=== PATIENT | male | born 1985 | race Caucasian/White ===

== ENCOUNTER 2016-09-17 15:24 | Emergency (ER) | payer OTHER ==
[~2016-09-17 15:24] MED LIST: ACETAMINOPHEN325 MG PO; ALDACTONE25 MG PO; ASPIRIN EC81 MG PO; COREG25 MG PO; JANUVIA100 MG PO; LASIX20 MG PO; LEVEMIR100 UNIT/1 SQ; LIPITOR20 MG PO; LISINOPRIL40 MG PO; NICOTINE TRANSD21 MG TOP; PROZAC20 MG PO
== END 2016-09-17 16:25 | disposition home or self-care (01) ==
LOC: ER 15:24
DX: S83.401A Sprain of unspecified collateral ligament of right knee, initial encounter (principal); E10.9 Type 1 diabetes mellitus without complications; I48.91 Unspecified atrial fibrillation; G43.909 Migraine, unspecified, not intractable, without status migrainosus; Z87.891 Personal history of nicotine dependence; Z79.899 Other long term (current) drug therapy; Z79.4 Long term (current) use of insulin; Z88.8 Allergy status to other drugs, medicaments and biological substances; X50.1XXA Overexertion from prolonged static or awkward postures, initial encounter

== ENCOUNTER 2017-04-06 00:29 | Emergency (ER) | payer OTHER | END 2017-04-06 03:13 | disposition home or self-care (01) | LOC: ER 00:29 | DX: G43.909 Migraine, unspecified, not intractable, without status migrainosus (principal); E11.9 Type 2 diabetes mellitus without complications; I48.91 Unspecified atrial fibrillation; Z87.891 Personal history of nicotine dependence; Z79.01 Long term (current) use of anticoagulants; Z79.4 Long term (current) use of insulin; Z79.899 Other long term (current) drug therapy; Z88.7 Allergy status to serum and vaccine | CPT/HCPCS: 96361; 96374; 96375; J1200; J1885; J2765; J3030 ==